=== PATIENT | female | born 2000 | race Caucasian/White ===

== ENCOUNTER 2022-11-12 08:00 | Outpatient (CLI) | payer OTHER ==
[2022-11-13 19:51] LABS: CHLAMYDIA TRACHOMATIS DNA NEGATIVE (NEGATIVE); NEISSERIA GONORRHOEAE DNA NEGATIVE (NEGATIVE); TRICHOMONAS VAGINALIS DNA NEGATIVE (NEGATIVE)
== END 2022-11-13 23:59 | disposition home or self-care (01) ==
LOC: LAB.WC 08:00
PROVIDERS: ATTEND Obstetrics & Gynecology
DX: Z11.3 Encounter for screening for infections with a predominantly sexual mode of transmission (principal)
CPT/HCPCS: 87491; 87591; 87661

== ENCOUNTER 2022-11-12 15:21 | Outpatient (CLI) | payer OTHER ==
[2022-11-12 15:41] LABS: BASOPHILS % (AUTO) 0.2 %; EOSINOPHILS # (AUTO) 0.1 10^3/uL (0.0-0.7); EOSINOPHILS % (AUTO) 0.5 %; HCT - HEMATOCRIT 40.7 % (37.0-47.0); HGB - HEMOGLOBIN 14.1 g/dL (12.0-16.0); LYMPHOCYTES # (AUTO) 2.3 10^3/uL (1.5-3.5); MEAN CORPUSCULAR HEMOGLOBIN 31.1 pg (27.0-31.0); MEAN CORPUSCULAR HGB CONC 34.6 g/dL (32.0-36.0); MEAN CORPUSCULAR VOLUME 89.6 fL (81.0-99.0); MEAN PLATELET VOLUME 10.6 fL (7.9-10.8); MONOCYTES # (AUTO) 0.7 10^3/uL (0.0-1.0); MONOCYTES % (AUTO) 6.3 %; NEUTROPHILS # (AUTO) 8.2 10^3/uL (1.5-6.6); NEUTROPHILS % (AUTO) 72.6 %; PLT - PLATELET COUNT 225 10^3/uL (130-450); RED BLOOD COUNT 4.54 10^6/uL (4.20-5.40); RED CELL DISTRIBUTION WIDTH 13.1 % (12.0-15.0); WHITE BLOOD COUNT 11.3 x10^3/uL (4.8-10.8)
[2022-11-12 15:53] LABS: BILIRUBIN,URINE NEGATIVE (NEGATIVE); GLUCOSE, URINE (UA) NEGATIVE (NEGATIVE); KETONES,URINE (UA) NEGATIVE (NEGATIVE); LEUKOCYTE ESTERASE, URINE NEGATIVE (NEGATIVE); NITRITE,URINE NEGATIVE (NEGATIVE); OCCULT BLOOD,URINE NEGATIVE (NEGATIVE); PROTEIN,URINE NEGATIVE (NEGATIVE); UROBILINOGEN,URINE 0.2 (NORMAL) E.U./dL (NORMAL)
[2022-11-12 16:02] LABS: BACTERIA,URINE None Seen /HPF (None Seen); CLARITY,URINE CLEAR (CLEAR); RBC,URINE None Seen /HPF (0-5); SQUAMOUS EPITHELIAL CELL,UR RARE Squamous (<= Few); WBC,URINE 0-3 /HPF (0-5)
[2022-11-13 06:07] LABS: HBsAG SCREEN Negative (Negative)
[2022-11-13 07:10] LABS: HCV AB <0.1 s/co ratio (0.0-0.9); HIV SCREEN 4TH GENERATION Non Reactive (Non Reactive)
[2022-11-13 08:10] LABS: VARICELLA-ZOSTER AB IGG <135 index (Immune >165)
[2022-11-14 04:09] LABS: RPR Non Reactive (Non Reactive)
== END 2022-11-12 15:22 | disposition home or self-care (01) ==
LOC: LAB 15:21
PROVIDERS: ATTEND Obstetrics & Gynecology
DX: Z34.90 Encounter for supervision of normal pregnancy, unspecified, unspecified trimester (principal); Z36.89 Encounter for other specified antenatal screening
CPT/HCPCS: 36415; 81001; 85025; 86592; 86762; 86787; 86803; 86850; 86900; 86901; 87086; 87340; 87389

== ENCOUNTER 2022-12-13 10:08 | Outpatient (CLI) | payer OTHER ==
--- NOTE | 2022-12-14 14:05 | Ultrasound Report ---
PROCEDURE: OB Detailed Eval INDICATIONS: SUPERVISION OF OUTSIDE/PRIOR DATING DATA: Last menstrual period (LMP): 07/16/2022. LMP-based estimated date of delivery (RON): 04/22/2023. First dating scan (date and location): 12/13/2022 at. Estimated date of delivery (RON) from first dating scan: 04/25/2023. The below data below was generated using the ultrasound RON of 04/25/2023 TECHNIQUE: Real-time scanning was performed of the fetus, with image documentation and biometric measurements. COMPARISON: None. FINDINGS: General: A single living intrauterine gestation is present. Presentation: Cephalic Placenta: Placental position is posterior, without previa. Amniotic fluid index: 15.7 cm; largest pocket measuring 4.4 cm. heart rate: 132 beats per minute. Maternal cervical canal: 3.8 cm long; normal length is 2.5 cm or more. biometrics: Biparietal diameter: 21 weeks 4 days Head circumference: 21 weeks 1 day Abdominal circumference: 20 weeks 4 days Femur length: 20 weeks 6 days Estimated gestational age from initial scan: Not available. Composite gestational age from present scan: 21 weeks 0 day Estimated weight and percentile: 376 g; 15.7% for gestational age Measurement variability in biometric dating: +/- 10 days from 12-20 weeks gestation, +/- 2 weeks from 20-30 weeks gestation, +/- 3 weeks at 30 weeks gestation or later. Anatomic survey: Neuro: Ventricles are normal at less than 10 mm. Cisterna magna is normal at 3-11 mm. Cerebellum i s normal in size and morphology. Nuchal skin fold: Normal at less than 6 mm between 14 and 20 weeks gestational age. Face: Nose and lips, facial profile are normal. Spine: No evidence for spina bifida. Heart: 4-chambered heart is present, with normal ventricular outflow tracts. Diaphragm: Diaphragm is intact. Stomach: Left-sided stomach is present. Kidneys: Right kidney is normal. Left kidney is not visualized. Cord: 3 vessel cord has orthotopic insertion. Bladder: Normal in size. Extremities: All 4 extremities are visualized. IMPRESSION: 1. A single living IUP with the estimated gestational age 21 weeks 0 day. Ultrasound RON 04/25/2023. 2. The estimates weight 376 g; 15.7% for gestational age. 3. Normalat ARNALDO. 4. left kidney is not visualized. Otherwise normal anatomic survey. Consider follow-up im aging. Reviewed by: Patricia Motley MD on 12/14/2022 2:04 PM PST Approved by: Patricia Motley MD on 12/14/2022 2:04 PM PST Station ID: [id number]
== END 2022-12-13 10:09 | disposition home or self-care (01) ==
LOC: DI 10:08
PROVIDERS: ATTEND Obstetrics & Gynecology
DX: Z34.92 Encounter for supervision of normal pregnancy, unspecified, second trimester (principal)

== ENCOUNTER 2023-01-07 22:08 | Outpatient (CLI) | payer OTHER ==
--- NOTE | 2023-01-08 12:25 | Ultrasound Report ---
PROCEDURE: OB F/U or Repeat INDICATIONS: SUPERVISION OF OUTSIDE/PRIOR DATING DATA: Last menstrual period (LMP): 07/16/2022. LMP-based estimated date of delivery (RON): 04/22/2023. First dating scan (date and location): 12/13/2022. Estimated date of delivery (RON) from first dating scan: 04/25/2023. The below data below was generated using the working RON of 04/25/2023 TECHNIQUE: Real-time scanning was performed of the fetus, with image documentation and biometric measurements. Endovaginal scanning: None COMPARISON: 12/13/2022 FINDINGS: General: A single living intrauterine gestation is present. Presentation: Cephalic Placenta: Placental position is posterior, without previa. Amniotic fluid index: 19.4 cm, normal for gestational age. heart rate: 127 beats per minute. Maternal cervical canal: 3.6 cm long; normal length is 2.5 cm or more. Estimated gestational age from initial scan: 24 week 4 day Other: Left kidney not well visualized and may be positioned in the pelvis. Immediately visualized fe zaki anatomy is within normal limits IMPRESSION: 1. Left kidney not well visualized. There is suggestion of left pelvic kidney. Consider follow-up 1-2 months Reviewed by: Lauri Ochoa MD on 01/08/2023 11:24 AM JAIR Approved by: Lauri Ochoa MD on 01/08/2023 11:24 AM JAIR Station ID: [id number]
== END 2023-01-07 22:09 | disposition home or self-care (01) ==
LOC: DI 22:08
PROVIDERS: ATTEND Obstetrics & Gynecology
DX: Z34.92 Encounter for supervision of normal pregnancy, unspecified, second trimester (principal)

== ENCOUNTER 2023-01-21 10:43 | Outpatient (CLI) | payer OTHER ==
[2023-01-21 17:36] LABS: HCT - HEMATOCRIT 40.9 % (37.0-47.0); HGB - HEMOGLOBIN 13.6 g/dL (12.0-16.0); MEAN CORPUSCULAR HEMOGLOBIN 31.5 pg (27.0-31.0); MEAN CORPUSCULAR HGB CONC 33.3 g/dL (32.0-36.0); MEAN CORPUSCULAR VOLUME 94.7 fL (81.0-99.0); MEAN PLATELET VOLUME 11.4 fL (7.9-10.8); RED BLOOD COUNT 4.32 10^6/uL (4.20-5.40); RED CELL DISTRIBUTION WIDTH 13.7 % (12.0-15.0); WHITE BLOOD COUNT 11.3 x10^3/uL (4.8-10.8)
== END 2023-01-21 10:44 | disposition home or self-care (01) ==
LOC: LAB.N 10:43
PROVIDERS: ATTEND Obstetrics & Gynecology
DX: Z34.90 Encounter for supervision of normal pregnancy, unspecified, unspecified trimester (principal)
CPT/HCPCS: 36415; 82950; 85027

== ENCOUNTER 2023-02-25 11:52 | Outpatient (CLI) | payer OTHER ==
[2023-02-25 12:17] VITALS: BP 118/75
== END 2023-02-25 12:40 | disposition home or self-care (01) ==
LOC: WFO 11:52 → FBP 11:53 → WFO 12:40
PROVIDERS: ATTEND Obstetrics & Gynecology
DX: O36.8330 Maternal care for abnormalities of the fetal heart rate or rhythm, third trimester, not applicable or unspecified (principal); Z3A.32 32 weeks gestation of pregnancy
CPT/HCPCS: 59025

== ENCOUNTER 2023-02-25 19:01 | Outpatient (CLI) | payer SELFPAY ==
--- NOTE | 2023-02-25 17:24 | PROCEDURE REPORT ---
- HPI Diagnosis/Indication for NST: Other ( tachycardia in the office visit) - NST Procedure EFM: 150s, moderate variability, positive 15x15 accelerations, no decelerations [place]: no contractions NST reactive/Cat 1 Performed and read 02/25/23 - Results and Plan Plan: 22yo at 32w sent from office for tachycardia for NST - care uncomplicated at - tachycardia sustained on doppler 170s in the office - NST reactive, no tachycardia noted - Follow up next scheduled appointment
--- NOTE | 2023-02-26 11:56 | Ultrasound Report ---
PROCEDURE: OB F/U or Repeat INDICATIONS: ABN US OUTSIDE/PRIOR DATING DATA: Last menstrual period (LMP): 07/16/2022. LMP-based estimated date of delivery (RON): 04/22/2023. First dating scan (date and location): 12/13/2022. Estimated date of delivery (RON) from first dating scan: 04/25/2023. The below data below was generated using the ultrasound RON of 04/25/2003 TECHNIQUE: Real-time scanning was performed of the fetus, with image documentation and biometric measurements. Endovaginal scanning: Not performed COMPARISON: None. FINDINGS: General: A single living intrauterine gestation is present. Presentation: Cephalic Placenta: Placental position is posterior, without previa. Amniotic fluid index: 13.1 cm, normal for gestational age. heart rate: 152 beats per minute. Maternal cervical canal not visualized. biometrics: Biparietal diameter: 7.9 cm, 31 weeks 4 days Head circumference: 30.1 cm, 33 weeks 3 days Abdominal circumference: 25.8 cm, 30 weeks Femur length: 5.8 cm, 30 weeks 3 days Estimated gestational age from initial scan: 30 weeks 4 days Composite gestational age from present scan: 30 weeks 3 days Estimated weight and percentile: 1593 g, 13th percentile. Measurement variability in biometric dating: +/- 10 days from 12-20 weeks gestation, +/- 2 weeks from 20-30 weeks gestation, +/- 3 weeks at 30 weeks gestation or more. anatomy: The left kidney is seen within the left pelvis. Right kidney, stomach, chest and urina ry bladder within normal limits. IMPRESSION: Single living intrauterine at 31 weeks 4 days, RON of 04/25/2023. The left kidney is located within the left pelvis. Estimated weight of 1593 g, 12.5 percentile. Reviewed by: Silvestre Rodríguez on 02/26/2023 10:54 AM JAIR Approved by: Silvestre Rodríguez on 02/26/2023 10:54 AM JAIR Station ID: [id number]
== END 2023-02-25 19:02 | disposition home or self-care (01) ==
LOC: DI 19:01
PROVIDERS: ATTEND Obstetrics & Gynecology
DX: O28.3 Abnormal ultrasonic finding on antenatal screening of mother (principal); Z3A.31 31 weeks gestation of pregnancy

== ENCOUNTER 2023-03-25 08:00 | Outpatient (CLI) | payer OTHER | END 2023-03-25 23:59 | disposition home or self-care (01) | LOC: LAB 08:00 | PROVIDERS: ATTEND Obstetrics & Gynecology | DX: Z36.85 Encounter for antenatal screening for Streptococcus B (principal) | CPT/HCPCS: 87797 ==

== ENCOUNTER 2023-04-01 11:53 | Outpatient (CLI) | payer OTHER ==
[2023-04-01 12:22] VITALS: BP 125/80
[2023-04-01 12:27] LABS: BASOPHILS % (AUTO) 0.2 %; EOSINOPHILS # (AUTO) 0.1 10^3/uL (0.0-0.7); EOSINOPHILS % (AUTO) 0.6 %; HCT - HEMATOCRIT 36.8 % (37.0-47.0); HGB - HEMOGLOBIN 12.5 g/dL (12.0-16.0); LYMPHOCYTES % (AUTO) 19.1 %; MEAN CORPUSCULAR HEMOGLOBIN 30.6 pg (27.0-31.0); MEAN PLATELET VOLUME 11.4 fL (7.9-10.8); MONOCYTES # (AUTO) 0.6 10^3/uL (0.0-1.0); MONOCYTES % (AUTO) 5.7 %; NEUTROPHILS # (AUTO) 7.8 10^3/uL (1.5-6.6); NEUTROPHILS % (AUTO) 73.7 %; PLT - PLATELET COUNT 221 10^3/uL (130-450); RED BLOOD COUNT 4.09 10^6/uL (4.20-5.40); RED CELL DISTRIBUTION WIDTH 13.3 % (12.0-15.0); WHITE BLOOD COUNT 10.6 x10^3/uL (4.8-10.8)
[2023-04-01 12:37] LABS: CREATININE,URINE 45.8 mg/dL; PROTEIN/CREATININE RATIO,URINE 0.2 (<=0.2)
[2023-04-01 12:46] LABS: ALBUMIN 2.7 g/dL (3.2-5.5); ALBUMIN/GLOBULIN RATIO 0.8 (1.0-2.2); BILIRUBIN,TOTAL 0.4 mg/dL (0.2-1.0); CALCIUM 8.6 mg/dL (8.5-10.3); CREATININE 0.5 mg/dL (0.4-1.0); POTASSIUM 3.9 mmol/L (3.5-5.0); TOTAL PROTEIN 6.2 g/dL (6.7-8.2)
--- NOTE | 2023-04-02 08:31 | PROVIDER PROGRESS NOTE ---
- HPI Chief Complaint: Hypertension/PIH Current : Current EDU 04/22/23 Gestation 37 Weeks and 0 Days 2 Para 0 Vital Signs Temperature 98.2 F 04/01/23 12:11 Heart Rate 90 04/01/23 12:11 Respiratory Rate 18 04/01/23 12:11 Blood Pressure 144/97 H 04/01/23 12:11 O2 Saturation 99 04/01/23 12:11 Temperature 98.2 F 04/01/23 17:29 Heart Rate 89 04/01/23 17:29 Respiratory Rate 18 04/01/23 17:29 Blood Pressure 125/80 04/01/23 17:29 O2 Saturation 99 04/01/23 12:19 If not protocol: Oxygen Flow, liters/minute - Procedures OB Procedure Performed: NST Diagnosis/Indication for NST: Gestational Hypertension NST Procedure: NST Procedure Start Date 04/01/23 Start Time 12:01 Stop Time 13:20 Vibroacoustic Stimulation Used No Patient States Movement Yes EFM: 140s, moderate variability, positive 15x15 accelerations, no decelerations [place]: no contractions NST reactive/Cat 1 Performed and read 04/01/23 - Plan Plan: 22yo at 37.1w sent from office visit for gestational hypertension evaluation - Preeclampsia evaluation benign, diagnosed with GHTN today. Asymptomatic. - NST reactive - Plan for IOL this week for gestational hypertension, will schedule as we are unable to admit today. Will reevaluate tomorrow.
== END 2023-04-01 13:30 | disposition home or self-care (01) ==
LOC: WFO 11:53 → FBP 11:55 → WFO 13:30
PROVIDERS: ATTEND Obstetrics & Gynecology
DX: O13.3 Gestational [pregnancy-induced] hypertension without significant proteinuria, third trimester (principal); Z3A.37 37 weeks gestation of pregnancy
CPT/HCPCS: 36415; 59025; 80053; 82570; 84156; 85025; 99213

== ENCOUNTER 2023-04-03 18:46 | Inpatient (IN) | payer OTHER ==
[2023-04-03] MEDS ORDERED: OXYTOCIN/SODIUM CHLORIDE 500 ML IV PRN (19:26)
[2023-04-03] MEDS ORDERED: fentaNYL 100 MCG/2 ML VIAL IVP PRN (19:26)
[2023-04-03] MEDS ORDERED: miSOPROStoL 200 MCG TABLET BC PRN (19:26)
[2023-04-03] MEDS ORDERED: miSOPROStoL 200 MCG TABLET PR PRN (19:26)
[2023-04-03] MEDS ORDERED: LABETALOL 20 MG/4 ML SYRINGE IVP PRN ×3 (19:26)
[2023-04-03] MEDS ORDERED: SODIUM CHLORIDE FLUSH 0.9% 10 ML SYRINGE IVP PRN (19:26)
[2023-04-03] MEDS ORDERED: OXYTOCIN 10 UNIT/ML VIAL IM PRN (19:26)
[2023-04-03] MEDS ORDERED: TRANEXAMIC ACID IN NACL 1,000 MG/100 ML BAG IV PRN (19:26)
[2023-04-03] MEDS ORDERED: CARBOPROST TROMETHAMINE 250 MCG/ML AMP IM PRN (19:26)
[2023-04-03] MEDS ORDERED: lidocaine 1% 20 ML MDV ID PRN (19:26)
[2023-04-03] MEDS ORDERED: NIFEdipine 10 MG CAPSULE PO PRN (19:26)
[2023-04-03] MEDS ORDERED: hydrALAZINE INJ 20 MG/ML VIAL IVP PRN ×2 (19:26)
--- NOTE | 2023-04-03 19:39 | HISTORY & PHYSICAL EXAMINATION ---
Admit History - Visit Reason Visit Reason: Other (induction of labor for gestational hypertension) - : 2 Parity: 0 Care: positive: [facility] Risk/History: positive: induced HTN Complications This : positive: induced HTN - Mother's Labs Mother's Blood Type: positive: A Mother's RH: positive: Positive GBS: positive: Group B Step Negative Rubella Status: positive: Equivocal - Other Maternal History Other Maternal History: left pelvic kidney - NST Procedure NST Procedure Start Time 12:01 Stop Time 13:20 Review of Systems - All Other Systems All Other Systems: reports: Reviewed and negative (denies headache, changes in vision, RUQ pain) Physical - Monitoring Strip Review: positive: Category I - Presentation Presentation: positive: Vertex - Vaginal Exam Membranes: positive: Membranes intact Dilation (in cm): 1 Effacement (%): 50 Station: positive: -3 Cervical Position: positive: Anterior (FHT 150, moderate variability, +accels, no decels, reactive) Plan for Labor - Plan For Labor Plan for Labor: Discussed induction of labor risks, benefits and alternative discussed and all questions answered. Informed consent signed Reviewed signs/symptoms of pre-eclampsia GBS negative MMR , Varicella non-immune left pelvic kidney induction- discussed cytotec overnight
[2023-04-03 19:54] VITALS: BP 132/82
[2023-04-03] MEDS ORDERED: SODIUM CHLORIDE FLUSH 0.9% 10 ML SYRINGE IVP SCH (20:00)
[2023-04-03 20:33] LABS: BASOPHILS % (AUTO) 0.4 %; EOSINOPHILS # (AUTO) 0.1 10^3/uL (0.0-0.7); EOSINOPHILS % (AUTO) 0.6 %; HCT - HEMATOCRIT 37.1 % (37.0-47.0); HGB - HEMOGLOBIN 12.5 g/dL (12.0-16.0); LYMPHOCYTES # (AUTO) 2.5 10^3/uL (1.5-3.5); LYMPHOCYTES % (AUTO) 22.1 %; MEAN CORPUSCULAR HEMOGLOBIN 30.1 pg (27.0-31.0); MEAN CORPUSCULAR HGB CONC 33.7 g/dL (32.0-36.0); MEAN CORPUSCULAR VOLUME 89.4 fL (81.0-99.0); MEAN PLATELET VOLUME 11.8 fL (7.9-10.8); MONOCYTES % (AUTO) 9.2 %; NEUTROPHILS # (AUTO) 7.6 10^3/uL (1.5-6.6); NEUTROPHILS % (AUTO) 67.1 %; PLT - PLATELET COUNT 262 10^3/uL (130-450); RED BLOOD COUNT 4.15 10^6/uL (4.20-5.40); RED CELL DISTRIBUTION WIDTH 13.4 % (12.0-15.0); WHITE BLOOD COUNT 11.3 x10^3/uL (4.8-10.8)
[2023-04-03] MEDS: miSOPROStoL 100 MCG TABLET PO SCH (20:35)
[2023-04-03] MEDS ORDERED: LACTATED RINGERS 500 ML IV PRN (20:51)
[2023-04-03] MEDS ORDERED: LACTATED RINGERS 1,000 ML IV SCH (21:00)
[2023-04-04] MEDS: miSOPROStoL 100 MCG TABLET PO SCH (00:26)
--- NOTE | 2023-04-04 00:27 | PROVIDER PROGRESS NOTE ---
Subjective - Prog Note Date Prog Note Date: 04/04/23 Objective - Vital Signs/Intake & Output Vital Signs: Vital Signs x48h Temp Pulse Resp BP 04/03/23 19:32 99.3 F 76 16 132/82 H - Lab Results Fish Bones: 04/03/23 20:00 Other Labs: Lab Results x24hrs 04/03/23 Range/Units 20:00 WBC 11.3 H (4.8-10.8) x10^3/uL RBC 4.15 L (4.20-5.40) 10^6/uL Hgb 12.5 (12.0-16.0) g/dL Hct 37.1 (37.0-47.0) % MCV 89.4 (81.0-99.0) fL MCH 30.1 (27.0-31.0) pg MCHC 33.7 (32.0-36.0) g/dL RDW 13.4 (12.0-15.0) % Plt Count 262 (130-450) 10^3/uL MPV 11.8 H (7.9-10.8) fL Neut # (Auto) 7.6 H (1.5-6.6) 10^3/uL Lymph # (Auto) 2.5 (1.5-3.5) 10^3/uL [place] # (Auto) 1.0 (0.0-1.0) 10^3/uL Eos # (Auto) 0.1 (0.0-0.7) 10^3/uL Baso # (Auto) 0.0 (0.0-0.1) 10^3/uL Absolute Nucleated RBC 0.00 x10^3/uL Nucleated RBC % 0.0 /100WBC Assessment/Plan - Problem List (1) Gestational hypertension Impression: call from lab with question about possible antibody. Patient had negative antibody screen in . Sample is being sent to [place] to test for antibody. Will hold off on induction until lab result returns. Plan of care discussed with the patient and all questions answered.
--- NOTE | 2023-04-04 08:10 | PROVIDER PROGRESS NOTE ---
Subjective - Prog Note Date Prog Note Date: 04/04/23 Objective - Vital Signs/Intake & Output Intake & Output: Intake & Output 04/01/23 04/02/23 04/03/23 04/04/23 23:59 23:59 23:59 23:59 Intake Total 240 360 Balance 240 360 - Lab Results Fish Bones: 04/03/23 20:00 Other Labs: Lab Results x24hrs 04/03/23 04/03/23 Range/Units 20:00 20:00 WBC 11.3 H (4.8-10.8) x10^3/uL RBC 4.15 L (4.20-5.40) 10^6/uL Hgb 12.5 (12.0-16.0) g/dL Hct 37.1 (37.0-47.0) % MCV 89.4 (81.0-99.0) fL MCH 30.1 (27.0-31.0) pg MCHC 33.7 (32.0-36.0) g/dL RDW 13.4 (12.0-15.0) % Plt Count 262 (130-450) 10^3/uL MPV 11.8 H (7.9-10.8) fL Neut # (Auto) 7.6 H (1.5-6.6) 10^3/uL Lymph # (Auto) 2.5 (1.5-3.5) 10^3/uL [place] # (Auto) 1.0 (0.0-1.0) 10^3/uL Eos # (Auto) 0.1 (0.0-0.7) 10^3/uL Baso # (Auto) 0.0 (0.0-0.1) 10^3/uL Absolute Nucleated RBC 0.00 x10^3/uL Nucleated RBC % 0.0 /100WBC Blood Type A POSITIVE Antibody Screen POSITIVE Antibody Identification Anti-Jka Assessment/Plan - Problem List (1) Gestational hypertension Impression: antibody screen is positive for Jka antibody. I have left a message for MFM. Dr. Browning aware and is assuming care of the patient.
--- NOTE | 2023-04-04 11:09 | Discharge Plan ---
Discharge Plan Problem Reviewed?: Yes Disposition: 02 Transfer Acute Care Hosp Condition: Good Diet: Regular Activity Restrictions: Activity as Tolerated Shower Restrictions: No Driving Restrictions: No No Smoking: If you smoke, Please STOP! Call for help. Follow-up with: Marixa Browning DO [Provider Admit Priv/Credential] -
--- NOTE | 2023-04-06 00:37 | DISCHARGE SUMMARY ---
Discharge Summary Admit Date: 04/03/23 Discharge Date: 04/04/23 Discharging Provider: Marixa Browning DO Condition at Discharge: Good Discharge Disposition: 02 Transfer Acute Care Hosp Discharge Facility Name: [facility] - DIAGNOSES Admission Diagnoses: Gestational hypertension - HPI History of Present Illness: 22yo at 37.2w admitted for IOL for gestational hypertension. care at . - HOSPITAL COURSE Hospital Course: 22yo at 37.2w admitted for IOL for gestational hypertension. care at . She received one dose of misoprostol. T&S obtained during admission showed antibodies. Further testing sent out. Induction not continued while testing was pending. Antibody testing returned with Jka antibodies. Initial T&S did not show antibodies. Recent US and monitoring is reassuring. Decision made to transfer patient as we would not be able to support baby with transfusions if needed. also complicated by gestational hypertension, left pelvic kidney, varicella non-immune, rubella non-immune. Plan discussed with Eleanor JEFF and hospitalist who accepted care. Patient will travel via POV to [facility]. SVE 1cm still prior to departure, Cat1 tracing. Patient consents to transfer of care plan as she would like to reduce risk of separation from baby. - ALLERGIES Allergies/Adverse Reactions: Allergies Allergy/AdvReac Type Severity Reaction Status Date / Time No Known Drug Allergies Allergy Verified 04/03/23 20:34 - PHYSICAL EXAM AT DISCHARGE General Appearance: positive: No acute distress Eyes Bilateral: positive: EOMI Respiratory: positive: No respiratory distress Skin: positive: Color nml Extremities: positive: Non-tender - LABS Result Diagrams: 04/03/23 20:00 - QUALITY (Female Hip Fx Only) Was patient sent home on osteoporosis medication?: No - TIME SPENT Time Spent in Discharge (Minutes): 25
== END 2023-04-04 11:24 | disposition short-term general hospital (02) | DRG 833 ==
LOC: WFO 18:46 → FBP 18:48 → WFO 20:14
PROVIDERS: ADMIT Obstetrics & Gynecology Obstetrics; ATTEND Obstetrics & Gynecology Obstetrics
DX: O13.3 Gestational [pregnancy-induced] hypertension without significant proteinuria, third trimester (principal); O36.1930 Maternal care for other isoimmunization, third trimester, not applicable or unspecified; Z53.09 Procedure and treatment not carried out because of other contraindication; Z3A.37 37 weeks gestation of pregnancy
CPT/HCPCS: 36415; 85025; 86850; 86870; 86900; 86901; 86922; A9270